=== PATIENT | male | born 1975 | race African-American/Black ===

== ENCOUNTER 2017-09-29 14:10 | Emergency (ER) | payer MEDICAID ==
[2017-09-29] MEDS ORDERED: Sodium Chloride 0.9% 10 ML Syringe FLUSH PRN (14:18)
--- NOTE | 2017-09-29 14:57 | CR ---
Clinical history: 42-year-old male chest pain. Interpretation: No acute new cardiopulmonary abnormality identified in the interval since 14 July 2016 exam. Reasonable inspiratory effort obese male with external sample maker leads. Normal cardiac silhouette without cephalization of vascular flow, signs of alveolar edema or dependen t pleural fluid accumulation. No lung mass, hilar lymphadenopathy or focal lobar pneumonia.
[2017-09-29 15:11] LABS: CHLORIDE,CL 108 mmol/L (101-111); SODIUM,NA 140 mmol/L (135-145)
--- NOTE | 2017-09-29 15:21 | EDM.PDOC ---
ED HPI GENERAL MEDICAL PROBLEM - General Chief Complaint: Chest Pain Stated Complaint: CHEST PAIN Time Seen by Provider: 09/29/17 14:22 Source of Information: Reports: Patient, RN, RN Notes Reviewed History Limitations: Reports: Language Barrier - History of Present Illness INITIAL COMMENTS - FREE TEXT/NARRATIVE: Pt presents to the ER with c/o left sided chest pain for the past 4-5 days. He states he has a history of HTN and DMII. Denies fever, chills, N/V/D. Admits to a cough and SOB at times. Patient speaks montenegrin and is difficult to elicit information from. Onset: Gradual Duration: Intermittent Location: Reports: Chest Quality: Reports: Ache, Dull, Pressure Severity: Moderate Improves with: Reports: None Worsens with: Reports: None Associated Symptoms: Reports: Cough, Shortness of Breath Left Chest Pain Score (Numeric/FACES): 6 - Related Data Allergies Allergy/AdvReac Type Severity Reaction Status Date / Time meperidine [From Demerol] Allergy Cannot Verified 07/14/16 15:59 Remember Home Meds: Home Meds . [No Known Home Meds] 07/14/16 [History] Past Medical History Cardiovascular History: Reports: Hypertension Endocrine/Metabolic History: Reports: Diabetes, Type II, Obesity/BMI 30+ Social & Family History - Family History Family Medical History: Noncontributory - Tobacco Use Smoking Status *Q: Never Smoker Second Hand Smoke Exposure: No - Recreational Drug Use Recreational Drug Use: No ED ROS GENERAL - Review of Systems Review Of Systems: ROS reveals no pertinent complaints other than HPI. ED EXAM, GENERAL - Physical Exam Exam: See Below Exam Limited By: Language Barrier General Appearance: Alert, WD/WN, Mild Distress Eye Exam: Bilateral Eye: EOMI, Normal Inspection Ears: Normal External Exam, Hearing Grossly Normal Nose: Normal Inspection Throat/Mouth: Normal Inspection, Normal Voice, No Airway Compromise Head: Atraumatic, Normocephalic Neck: Normal Inspection Respiratory/Chest: No Respiratory Distress, No Accessory Muscle Use, Chest Non- Tender, Decreased Breath Sounds Cardiovascular: Normal Peripheral Pulses, Regular Rate, Rhythm, No Edema, No Gallop, No JVD, No Murmur, No Rub Peripheral Pulses: 2+: Radial (L), Radial (R) GI/Abdominal: Normal Bowel Sounds, Soft, Non-Tender (Male) Exam: Deferred Rectal (Males) Exam: Deferred Back Exam: Normal Inspection, Full Range of Motion Extremities: Normal Inspection, Normal Range of Motion, Non-Tender, No Pedal Edema, Normal Capillary Refill Neurological: Alert, Oriented, CN II-XII Intact, Normal Cognition, Normal Gait, Normal Reflexes, No Motor/Sensory Deficits Psychiatric: Anxious, Tearful Skin Exam: Warm, Dry, Intact, Normal Color, No Rash Lymphatic: No Adenopathy Course - Vital Signs Last Recorded V/S: Last Vital Signs Temp 99.4 F 09/29/17 14:20 Pulse 81 09/29/17 14:20 Resp 18 09/29/17 14:20 BP 169/89 H 09/29/17 14:20 Pulse Ox 100 09/29/17 14:20 - Orders/Labs/Meds Orders: Active Orders 24 hr Category Date Time Status DRUG SCREEN URINE BIORAD [URCHEM] Stat Lab 09/29/17 15:05 Ordered UA W/MICROSCOPIC [URIN] Stat Lab 09/29/17 15:05 Ordered Labs: Laboratory Tests 09/29/17 09/29/17 09/29/17 Range/Units 14:30 14:30 14:30 WBC 9.6 (5.0-10.0) 10^3/uL RBC 5.36 (4.6-6.2) 10^6/uL Hgb 14.6 (14.0-18.0) g/dL Hct 42.2 (40.0-54.0) % MCV 78.7 L (80-100) fL MCH 27.2 (27.0-34.0) pg MCHC 34.6 (33.0-35.0) g/dL Plt Count 233 (150-450) 10^3/uL Neut % (Auto) 61.6 (42.2-75.2) % Lymph % (Auto) 30.0 (20.5-50.1) % Yancey % (Auto) 7.0 (2-8) % Eos % (Auto) 1.1 (1.0-3.0) % Baso % (Auto) 0.3 (0.0-1.0) % PT 9.9 (9.0-12.0) SEC INR 1.0 (0.9-1.2) Sodium 140 (135-145) mmol/L Potassium 3.5 L (3.6-5.0) mmol/L Chloride 108 (101-111) mmol/L Carbon Dioxide 26.0 (21.0-31.0) mmol/L Anion Gap 9.5 BUN 8 (7-18) mg/dL Creatinine 1.0 (0.6-1.3) mg/dL Est Cr Clr Drug Dosing 97.33 mL/min Estimated GFR (MDRD) > 60 BUN/Creatinine Ratio 8.00 Glucose 129 H (74-105) mg/dL Calcium 8.8 (8.4-10.2) mg/dl Total Bilirubin 0.8 (0.2-1.0) mg/dL AST 29 (10-42) IU/L ALT 32 (10-60) IU/L Alkaline Phosphatase 51 (42-121) IU/L Troponin I < 0.02 (0.00-0.02) ng/ml Total Protein 7.7 (6.7-8.2) g/dl Albumin 4.5 (3.2-5.5) g/dl Globulin 3.2 Albumin/Globulin Ratio 1.41 Urine Color (YELLOW) Urine Appearance (CLEAR) Urine pH (5.0-9.0) Ur Specific Cornish (1.005-1.030) Urine Protein (NEGATIVE) Urine Glucose (UA) (NEGATIVE) Urine Ketones (NEGATIVE) Urine Occult Blood (NEGATIVE) Urine Nitrite (NEGATIVE) Urine Bilirubin (NEGATIVE) Urine Urobilinogen (0.2-1.0) mg/dL Ur Leukocyte Esterase (NEGATIVE) Urine RBC /HPF Urine WBC (0-5/HPF) /HPF Ur Epithelial Cells /HPF Urine Bacteria (0-FEW/HPF) /HPF Urine Mucus /LPF Urine Other Urine Opiates Screen (NEGATIVE) Ur Oxycodone Screen (NEGATIVE) Urine Methadone Screen (NEGATIVE) Ur Barbiturates Screen (NEGATIVE) U Tricyclic Antidepress (NEGATIVE) Ur Phencyclidine Scrn (NEGATIVE) Ur Amphetamine Screen (NEGATIVE) U Methamphetamines Scrn (NEGATIVE) Urine MDMA Screen (NEGATIVE) U Benzodiazepines Scrn (NEGATIVE) Urine Cocaine Screen (NEGATIVE) U Marijuana (THC) Screen (NEGATIVE) Ethyl Alcohol < 5 mg/dL 09/29/17 09/29/17 Range/Units 15:05 15:05 WBC (5.0-10.0) 10^3/uL RBC (4.6-6.2) 10^6/uL Hgb (14.0-18.0) g/dL Hct (40.0-54.0) % MCV (80-100) fL MCH (27.0-34.0) pg MCHC (33.0-35.0) g/dL Plt Count (150-450) 10^3/uL Neut % (Auto) (42.2-75.2) % Lymph % (Auto) (20.5-50.1) % Yancey % (Auto) (2-8) % Eos % (Auto) (1.0-3.0) % Baso % (Auto) (0.0-1.0) % PT (9.0-12.0) SEC INR (0.9-1.2) Sodium (135-145) mmol/L Potassium (3.6-5.0) mmol/L Chloride (101-111) mmol/L Carbon Dioxide (21.0-31.0) mmol/L Anion Gap BUN (7-18) mg/dL Creatinine (0.6-1.3) mg/dL Est Cr Clr Drug Dosing mL/min Estimated GFR (MDRD) BUN/Creatinine Ratio Glucose (74-105) mg/dL Calcium (8.4-10.2) mg/dl Total Bilirubin (0.2-1.0) mg/dL AST (10-42) IU/L ALT (10-60) IU/L Alkaline Phosphatase (42-121) IU/L Troponin I (0.00-0.02) ng/ml Total Protein (6.7-8.2) g/dl Albumin (3.2-5.5) g/dl Globulin Albumin/Globulin Ratio Urine Color Yellow (YELLOW) Urine Appearance Cloudy (CLEAR) Urine pH 5.5 (5.0-9.0) Ur Specific Cornish >= 1.030 (1.005-1.030) Urine Protein >=300 H (NEGATIVE) Urine Glucose (UA) Negative (NEGATIVE) Urine Ketones Negative (NEGATIVE) Urine Occult Blood Small H (NEGATIVE) Urine Nitrite Negative (NEGATIVE) Urine Bilirubin Negative (NEGATIVE) Urine Urobilinogen 0.2 (0.2-1.0) mg/dL Ur Leukocyte Esterase Negative (NEGATIVE) Urine RBC 0-5 /HPF Urine WBC 0-5 (0-5/HPF) /HPF Ur Epithelial Cells Rare /HPF Urine Bacteria Rare (0-FEW/HPF) /HPF Urine Mucus Moderate H /LPF Urine Other See note Urine Opiates Screen Negative (NEGATIVE) Ur Oxycodone Screen Negative (NEGATIVE) Urine Methadone Screen Negative (NEGATIVE) Ur Barbiturates Screen Negative (NEGATIVE) U Tricyclic Antidepress Negative (NEGATIVE) Ur Phencyclidine Scrn Negative (NEGATIVE) Ur Amphetamine Screen Negative (NEGATIVE) U Methamphetamines Scrn Negative (NEGATIVE) Urine MDMA Screen Negative (NEGATIVE) U Benzodiazepines Scrn Negative (NEGATIVE) Urine Cocaine Screen Negative (NEGATIVE) U Marijuana (THC) Screen Negative (NEGATIVE) Ethyl Alcohol mg/dL Meds: Medications Discontinued Medications Generic Name Dose Route Start Last Admin Trade Name Freq PRN Reason Stop Dose Admin Al Hydroxide/Mg Hydroxide 30 ml 09/29/17 15:27 09/29/17 15:47 Gi Cocktail PO 09/29/17 15:28 30 ml ONETIME ONE Administration Sodium Chloride 10 ml 09/29/17 14:18 Saline Flush FLUSH ASDIRECTED PRN Keep Vein Open - Radiology Interpretation Free Text/Narrative:: Chest xray: No acute findings See rad report Departure - Departure Time of Disposition: 15:21 Disposition: Home, Self-Care 01 Condition: Fair Clinical Impression: Non-cardiac chest pain Instructions: Chest Wall Pain, [id number], Nonspecific Chest Pain, Easy-to- Read Forms: ED Department Discharge Additional Instructions: Follow up with your primary care facility Drink plenty of water - My Orders Last 24 Hours: My Active Orders 09/29/17 15:05 DRUG SCREEN URINE BIORAD [URCHEM] Stat UA W/MICROSCOPIC [URIN] Stat - Assessment/Plan Last 24 Hours: My Active Orders 09/29/17 15:05 DRUG SCREEN URINE BIORAD [URCHEM] Stat UA W/MICROSCOPIC [URIN] Stat
[2017-09-29] MEDS ORDERED: GI Cocktail Oral Solution 30 ML PO ONE (15:27)
--- NOTE | 2017-10-03 07:41 | EKG ---
09/29/2017- AGUILA CLARK - FINDINGS: Twelve-lead EKG shows normal sinus rhythm with heart rate of 78. Left anterior fascicular block noted. Left ventricular hypertrophy signs noted. Nonspecific ST-T wave changes noted on lead aVL. No significant ST elevation or ST depression noted on this 12-lead EKG. [facility] /[id number]
== END 2017-09-29 16:07 | disposition home or self-care (01) ==
LOC: DL.ED 14:10
DX: R07.89 Other chest pain (principal); I10 Essential (primary) hypertension; E11.9 Type 2 diabetes mellitus without complications; E66.9 Obesity, unspecified; Z88.8 Allergy status to other drugs, medicaments and biological substances
CPT/HCPCS: 36415; 71045; 80053; 80305; 81001; 84484; 85025; 85610; 87804; 93005; 99285; A9270-GY; G0480

== ENCOUNTER 2017-10-04 10:37 | Emergency (ER) | payer MEDICAID ==
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
[2017-10-04] MEDS ORDERED: Cyclobenzaprine 10 MG Tab PO ONE (11:54)
[2017-10-04] MEDS ORDERED: Lisinopril 10 MG Tab PO ONE (11:54)
== END 2017-10-04 12:35 | disposition home or self-care (01) ==
LOC: DL.ED 10:37
DX: S16.1XXA Strain of muscle, fascia and tendon at neck level, initial encounter (principal); S20.212A Contusion of left front wall of thorax, initial encounter; M54.12 Radiculopathy, cervical region; I10 Essential (primary) hypertension; E11.9 Type 2 diabetes mellitus without complications; Z88.5 Allergy status to narcotic agent; V49.9XXA Car occupant (driver) (passenger) injured in unspecified traffic accident, initial encounter
CPT/HCPCS: 71101-LT; 72040; 82962; 99285; A9270-GY